=== PATIENT | male | born 1995 | race African-American/Black ===

== ENCOUNTER 2017-10-23 12:38 | Emergency (ER) | payer MEDICAID ==
[2017-10-23] MEDS ORDERED: IBUP400T13 PO (12:48)
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
--- NOTE | 2017-10-23 14:26 | RADIOLOGY IMAGING REPORT ---
FACILITY: [facility] PATIENT NAME: Ke Prince : 1995 MR: [id number] V: [id number] EXAM DATE: ORDERING PHYSICIAN: YISSEL MARTINI TECHNOLOGIST: Location: [facility] [place] Patient: Ke Prince : 1995 Visit/Account:[id number] Date of Sevice: 10/23/2017 EXAMINATION: CT Face without intravenous contrast HISTORY: Jaw pain after trauma. COMPARISON: None. TECHNIQUE: Axial images were obtained from the superior aspect of the orbits through the inferior as pect of mandible. Coronal and sagittal reformatted images were obtained from the axial source data. N o IV contrast was administered. One of the following dose optimization techniques was utilized in the performance of this exam: Autom ated exposure control; adjustment of the mA and/or kV according to the patient's size; or use of an i terative reconstruction technique. Specific details can be referenced in the facility's radiology C T exam operational policy. FINDINGS: Soft Tissues: Negative. Mandible / TMJ: Nondisplaced bilateral mandibular body fractures. On the left the fracture line is j ust posterior to the 3rd molar. On the right or fracture line is in the region of the roots of the 1 st and 2nd molars. None of the teeth appear to be fractured. Maxillae / pterygoid plates: No fractures. Cavity in the anterior aspect of the right 1st molar. Zygoma / zygomatic arches: Negative. Orbits: Negative. Nasal bones / nasal septum: Rightward nasal septal deviation inferiorly. Frontal bones: Negative. Sinuses: Negative. Visualized brain: Negative. IMPRESSION: 1. Acute nondisplaced bilateral posterior mandibular body fractures. 2. Cavity in the anterior aspect of the right 1st maxillary molar. 3. Rightward nasal septal deviation inferiorly. Report Dictated By: Yissel Dangelo MD at 10/23/2017 2:15 PM Report E-Signed By: Yissel Dangelo MD at 10/23/2017 2:20 PM WSN:[id number]
[2017-10-23 15:29] VITALS: BP 145/83
[2017-10-23] MEDS ORDERED: AMOX-362 PO (15:33)
== END 2017-10-23 15:20 | disposition home or self-care (01) ==
LOC: ER 12:56
DX: S02.609A Fracture of mandible, unspecified, initial encounter for closed fracture (principal); W50.0XXA Accidental hit or strike by another person, initial encounter; Y93.72 Activity, wrestling
CPT/HCPCS: 70486; 99282